=== PATIENT | female | born 1935 | race Caucasian/White ===

== ENCOUNTER → 2021-03-10 | Outpatient (CLI) | payer MEDICARE, BC ==
[2017-08-04 11:00] VITALS: BP 138/63
[~2021-03-10] MED LIST: AMLO-186 PO; HYDR-2145 PO; HYDR12.58 PO; POTA10TA12 PO; REGADENOSON 0.4 MG/5 ML DISP.SYRIN. IV ONE; SIMV20TA18 PO
--- NOTE | 2021-03-10 16:24 | RAD ---
MR#: [id number] Date of Study: 03/10/2021 Ordering Physician: SARAH BUCK, Referring Physician: GABBY RUTLEDGE Tech: RT Ashutosh (R) (N) APPROVED REPORT Test Type: Pharmacological Stress Nurse/Tech: Yaquelin Hernandez R.N. Test Indications: dyspnea on exertion Cardiac History: htn, pacemaker Medications: see ehr Medical History: see ehr Resting ECG: paced Resting Heart Rate: 67 bpm Resting Blood Pressure: 124/42mmHg Pretest Chest Pain: No chest pain Nurse/Tech Notes lungs cta Consent: The procedure was explained to the patient in lay terms. Informed consent was witnessed. Davey eout was entered into [employer]. History and Stress Test performed by GABE Bach Pharm. Details Pharmacologic stress testing was performed using 0.4mg per 5ml of regadenoson given intravenously ove r 7-10 seconds. Stress Symptoms No chest pain or symptoms. POST EXERCISE Reason for Termination: Infusion complete Target HR: No Max HR: 93 bpm Max Blood Pressure: 133/44mmHg Chest Pain: No. Arrhythmia: No. ST Change: No. INTERPRETATION Stress EKG Conclusion: Baseline EKG showed ventricular paced rhythm. Nondiagnostic changes at peak s tress. No arrhythmias. Imaging Protocol IMAGE PROTOCOL: Rest Tc-99m/stress Tc-99m 1 day Rest: Stress: Viability: Radiopharm.Tc99m DxquqbngbAq44h Sestamibi Dose9.7mCi 32.2mCi Duration 13min. 13min. Img Date 03/10/2021 03/10/2021 Inj-Img Rygl09ezx. 60min. Rest Admin Site:IV - Left WristAdministrator:RT Alla Boykin)(N) Stress Admin Site: IV - Left WristAdministrator: GABE Bach STRESS DATA End Diast. Vol.80.0mlLVEDV index BSA54.0ml End Syst. Vol.31.0mlLVESV index BSA21.0ml Myocardial Kugk509.0gEject. Zmexmrjp73.0% Stress Scores Regional WT1.00Summed WT22.00 Regional WM0.00Summed WM16.00 Study quality was good. Left Ventricular size was Normal at Rest and Stress. Lung uptake was . Left Ventricular ejection fraction is 61%. The rest and stress images show normal perfusion, normal contraction and thickening. LV Perf. Quant 17 Seg. SSS2.00 17 Seg. SRS2.00 17 Seg. SDS0.00 Stress Defect Extent (% LAD)0.00Rest Defect Extent (% LAD)0.00Rev. Defect Extent (% LAD)0.00 Stress Defect Extent (% LCX) 22.50Rest Defect Extent (% LCX)33.80Rev. Defect Extent (% LCX)0.00 Stress Defect Extent (% RCA)0.00Rest Defect Extent (% RCA)0.00Rev. Defect Extent (% RCA)0.00 Stress Defect Extent (% CT)3.90Rest Defect Extent (% CT)7.20Rev. Defect Extent (% CT)0.00 Conclusion 1. Regadenoson cardioisotope stress test did not show any evidence of ischemia or infarct. 2. Normal left ventricular systolic function with ejection fraction calculated at 61%. 3. Low risk for cardiac events. Signed by : Sarah Buck, Electronically Approved : 03/10/2021 16:23:46
--- NOTE | 2021-03-10 16:50 | CARD ---
MR#: [id number] Date of Study: 03/10/2021 Ordering Physician: SARAH BUCK, Referring Physician: SARAH BUCK Tech: aSrah Flowers [facility] APPROVED REPORT EXAM: Two-dimensional and M-mode echocardiogram with Doppler and color Doppler. Other Information Quality : AverageHR: 71bpm Rhythm : Atrial Fibrillation INDICATION Dyspnea Fatigue 2D DIMENSIONS RVDd2.0 (2.9-3.5cm)Left Atrium(2D)3.3 (1.6-4.0cm) IVSd1.5 (0.7-1.1cm)Aortic Root(2D)3.0 (2.0-3.7cm) LVDd4.5 (3.9-5.9cm)LVOT Diameter1.9 (1.8-2.4cm) PWd1.3 (0.7-1.1cm)LVDs2.7 (2.5-4.0cm) FS (%) 38.9 %SV63.7 ml LVEF(%)69.5 (>50%) Aortic Valve AoV Peak Maxx.179.1cm/sAoV VTI35.3cm AO Peak GR.12.8mmHgLVOT Peak Maxx.141.7cm/s AO Mean GR.5mmHgAVA (VMAX)2.28cm2 AI P 1/2 Chgh903tr Mitral Valve MVA Pmdoxqozlu33.98cm2 Tricuspid Valve TR P. Mtlkqmfo127qy/sTR Peak Gr.15mmHg LEFT VENTRICLE The left ventricle is normal size. There is mild to moderate concentric left ventricular hypertrophy. The left ventricular systolic function is normal. Estimated ejection fraction 65-70%. There is avel l LV segmental wall motion. RIGHT VENTRICLE The right ventricle is normal size. There is normal right ventricular wall thickness. The right ventr icular systolic function is normal. ATRIA The left atrium size is normal. The right atrium size is normal. The interatrial septum is intact wit h no evidence for an atrial septal defect or patent foramen ovale as noted on 2-D or Doppler imaging. AORTIC VALVE The aortic valve is mildly thickened but opens well. Doppler and Color Flow revealed mild aortic regu rgitation. There is no significant aortic valvular stenosis. MITRAL VALVE The mitral valve is thickened but opens well. There is no evidence of mitral valve prolapse. There is no mitral valve stenosis. Doppler and Color-flow revealed mild mitral regurgitation. TRICUSPID VALVE The tricuspid valve is normal in structure and function. Doppler and Color Flow revealed mild tricusp id regurgitation. Estimated PAP 20 mmHg. There is no tricuspid valve stenosis. PULMONIC VALVE The pulmonary valve is normal in structure and function. Doppler and Color Flow revealed no pulmonic valvular regurgitation. GREAT VESSELS The aortic root is normal in size. The ascending aorta is normal in size. The IVC is normal in size a nd collapses >50% with inspiration. PERICARDIAL EFFUSION There is no evidence of significant pericardial effusion. Critical Notification Critical Value: No <Conclusion> The left ventricular systolic function is normal. Estimated ejection fraction 65-70%. There is normal LV segmental wall motion. Mild aortic regurgitation. Mild mitral regurgitation. Mild tricuspid regurgitation. Estimated PAP 20 mmHg. There is no evidence of significant pericardial effusion. Signed by : Sarah Buck, Electronically Approved : 03/10/2021 16:50:13
== END ==
LOC: NM 09:08
PROVIDERS: ATTEND Internal Medicine Cardiovascular Disease
DX: I08.3 Combined rheumatic disorders of mitral, aortic and tricuspid valves (principal); R06.09 Other forms of dyspnea; R53.83 Other fatigue
CPT/HCPCS: 78452; 93017; 93306; A9500; J2785